=== PATIENT | female | born 1955 | race Caucasian/White ===

== ENCOUNTER → 2016-08-15 | Day surgery (SDC) | payer MEDICARE ==
[~2016-08-15] VITALS: Ht 160 cm; Wt 52.6 kg
[~2016-08-15] MED LIST: IBUPROFEN400 MG PO; NORCO 10-325 T1 EACH PO; PERCOCET 10-321 EACH PO; ROBAXIN PO
[2016-08-15 11:05] LABS: BUN/CREATININE RATIO 9 (0-10)
== END | disposition home or self-care (01) ==
LOC: OR 10:10
PROVIDERS: Orthopaedic Surgery
PROC: 0RPJ04Z Removal of Internal Fixation Device from Right Shoulder Joint, Open Approach (ICD-10-PCS; principal; 2016-08-15 14:30)
DX: T84.84XA Pain due to internal orthopedic prosthetic devices, implants and grafts, initial encounter (principal); S42.031D Displaced fracture of lateral end of right clavicle, subsequent encounter for fracture with routine healing; M19.90 Unspecified osteoarthritis, unspecified site; G89.29 Other chronic pain; Z88.8 Allergy status to other drugs, medicaments and biological substances; Z79.1 Long term (current) use of non-steroidal anti-inflammatories (NSAID); Z90.89 Acquired absence of other organs; X58.XXXD Exposure to other specified factors, subsequent encounter
CPT/HCPCS: 36415; 80048; 93005; J1100; J2405; J3010; J7120